=== PATIENT | female | born 1975 | race Caucasian/White ===

== ENCOUNTER → 2018-06-21 15:28 | Outpatient (CLI) | payer OTHER, SELFPAY ==
--- NOTE | 2018-06-21 16:18 | XR_ITS ---
XR foot LT min 3V HISTORY: Left foot pain ITS.REASON: pain ORDERING PHYSICIAN: Stephany Varela PATIENT AGE: 43 years COMPARISON: None FINDINGS: There is metatarsus varus with mild hallux valgus. No fracture or dislocation. No lytic or blastic change or significant degenerative change. IMPRESSION: Hallux valgus with metatarsus varus
--- NOTE | 2018-06-21 16:18 | XR_ITS ---
XR foot RT min 3V HISTORY: Foot pain ITS.REASON: pain ORDERING PHYSICIAN: Stephany Varela PATIENT AGE: 43 years COMPARISON: None FINDINGS: Mild metatarsus varus with mild hallux valgus. No fracture or dislocation. No lytic or blastic change. No significant degenerative change. IMPRESSION: Mild metatarsus varus with mild hallux valgus
--- NOTE | 2018-06-21 16:18 | XR_ITS ---
XR shoulder RT min 2V HISTORY: Right shoulder pain ITS.REASON: pain ORDERING PHYSICIAN: Stephany Varela PATIENT AGE: 43 years Comparison: 02/09/2007 FINDINGS: There are mild osteoarthritic changes of the acromioclavicular joint. The glenohumeral joint is unremarkable. No significant subacromial stenosis. No fracture or dislocation. IMPRESSION: Mild osteoarthritis of the acromioclavicular joint which has developed since the previous exam otherwise negative
[2018-06-21 16:19] LABS: Basophils % 0.4 % (0.1-2.0); Eosinophils # 0.1 K/mm3 (0.0-0.4); Eosinophils % 1.7 % (0.1-12.0); Hematocrit 37.3 % (37.0-47.0); Hemoglobin 12.9 g/dL (12.2-16.2); Lymphocytes # 2.9 K/mm3 (0.7-4.5); Lymphocytes % 34.1 % (10-50); Mean Corpuscular HGB Conc 34.5 g/dL (31.8-35.4); Mean Corpuscular Hemoglobin 29.1 pg (27.0-31.2); Mean Corpuscular Volume 84.3 fl (81-99); Mean Platelet Volume 7.9 fl (7.4-10.4); Monocytes # 0.4 K/mm3 (0.1-1.0); Monocytes % 4.9 % (1.7-9.3); Platelet Count 203 K/mm3 (142-424); Red Blood Count 4.42 M/mm3 (4.20-5.40); Red Cell Distribution Width 14.2 % (11.5-17.5); White Blood Count 8.4 K/mm3 (4.8-10.8)
[2018-06-21 17:51] LABS: Erythrocyte Sedimentation Rate 22 mm/hr (0-20)
[2018-06-21 17:53] LABS: Alanine Aminotransferase 23 U/L (12-78); Albumin Level 3.6 gm/dL (3.4-5.0); Albumin/Globulin Ratio 1.1 (1.1-1.8); Alkaline Phosphatase 124 U/L (46-116); Anion Gap 13.5 mEq/L (5-15); Aspartate Amino Transferase 16 U/L (15-37); Bilirubin,Total 0.4 mg/dL (0.2-1.0); Blood Urea Nitrogen 13 mg/dL (7-18); C-Reactive Protein 0.7 mg/L (0.0-0.9); Calcium 8.8 mg/dL (8.5-10.1); Carbon Dioxide 25 mmol/L (21.0-32.0); Chloride 102 mmol/L (98-107); Chol/HDL Ratio 3.1 (1-3.5); Cholesterol 152 mg/dL (140-200); Creatinine,Serum 0.81 mg/dL (0.55-1.02); Estimated Glomerular Filt Rate 77 ml/min (>60); Free T4 (Free Thyroxine) 1.15 ng/dl (0.76-1.46); GFR (African American) 93 ML/MIN (>60); Globulin 3.4 gm/dl (1.3-3.2); Glucose 84 mg/dL (74-106); HDL Cholesterol 49 mg/dL (29-89); LDL Cholesterol 66 mg/dL (0-130); Potassium 3.5 mmoL/L (3.5-5.1); Sodium 137 mmol/L (136-145); Thyroid Stimulating Hormone 1.82 uIU/ml (0.358-3.740); Triglycerides 185 mg/dL (30-200); VLDL Cholesterol 37 mg/dL (0-40)
[2018-06-23 13:10] LABS: Anti-Centromere B Antibodies <0.2 AI (0.0-0.9); Anti-Jo-1 <0.2 AI (0.0-0.9); Anti-Smith Antibody <0.2 AI (0.0-0.9); Antichromatin Antibodies <0.2 AI (0.0-0.9); Antiscleroderma-70 Antibodies <0.2 AI (0.0-0.9); RNP Antibodies <0.2 AI (0.0-0.9); Sjogren's Anti-SS-A <0.2 AI (0.0-0.9); Sjogren's Anti-SS-B <0.2 AI (0.0-0.9)
[2018-06-23 13:26] LABS: Anti-DNA (DS) Ab Qn 1 IU/mL (0-9); RA Latex Turbid. 11.8 IU/mL (0.0-13.9); Vitamin D 25 Hydroxy 13.4 ng/mL (30.0-100.0)
[2018-06-24 11:21] LABS: PTT-LA 38.7 sec (0.0-51.9); dRVVT 39.2 sec (0.0-47.0)
[2018-06-24 12:39] LABS: Lupus Reflex Interpretation Comment: (.)
[2018-06-25 08:07] LABS: Anti-Cyclic Citrullinated Pept 4 units (0-19)
== END ==
PROVIDERS: Visit Provider Nurse Practitioner Family
DX: I10 Essential (primary) hypertension (principal); R53.83 Other fatigue; M25.511 Pain in right shoulder; M25.50 Pain in unspecified joint; M79.671 Pain in right foot; M79.672 Pain in left foot
CPT/HCPCS: 36415; 73030; 73630; 80053; 80061; 82652; 84439; 84443; 85025; 85613; 85651; 86140; 86200; 86225; 86235; 86431

== ENCOUNTER → 2018-07-04 13:45 | Outpatient (CLI) | payer OTHER, SELFPAY ==
--- NOTE | 2018-07-04 13:57 | XR_ITS ---
XR wrist LT min 3V HISTORY ITS.REASON: left wrist pain ORDERING PHYSICIAN: Nicci Escamilla MD PATIENT AGE: 43 years Comparison: None FINDINGS: No fracture or dislocation. No lytic or blastic change. There is normal mineralization.. The joint spaces are well-preserved. No significant degenerative/arthritic changes. No erosive changes evident.. IMPRESSION: Negative wrist
== END ==
PROVIDERS: PCP Nurse Practitioner Family; Visit Provider Orthopaedic Surgery
DX: M25.532 Pain in left wrist (principal)
CPT/HCPCS: 73110

== ENCOUNTER → 2018-07-14 11:24 | Outpatient (CLI) | payer OTHER, SELFPAY ==
--- NOTE | 2018-07-14 11:32 | XR_ITS ---
XR foot wt bearing LT 3V HISTORY: Foot pain ITS.REASON: pain ORDERING PHYSICIAN: Iliana Schaefer DPM PATIENT AGE: 43 years COMPARISON: None FINDINGS: There is moderate metatarsus varus with mild hallux valgus. No fracture or dislocation. No other significant anomalies. IMPRESSION: Metatarsus varus with hallux valgus
--- NOTE | 2018-07-14 11:32 | XR_ITS ---
XR foot wt bearing RT 3V HISTORY: Foot pain ITS.REASON: pain ORDERING PHYSICIAN: Iliana Schaefer DPM PATIENT AGE: 43 years COMPARISON: None FINDINGS: There is metatarsus varus with mild hallux valgus. No fracture or dislocation. No lytic or blastic change. Normal alignment. IMPRESSION: Metatarsus varus with mild hallux valgus
== END ==
PROVIDERS: PCP Emergency Medicine; Visit Provider Podiatrist
DX: M79.671 Pain in right foot (principal); M79.672 Pain in left foot
CPT/HCPCS: 73630

== ENCOUNTER → 2018-07-21 12:49 | Outpatient (CLI) | payer OTHER, SELFPAY ==
--- NOTE | 2018-07-21 12:53 | XR_ITS ---
. DEXA DEXA SCAN.-BONE DENSITY STUDY HIPS AND LUMBAR SPINE HISTORY: Postmenopausal female 42-year-old female smoker. Low calcium intake. Reports history of bone disease postmenopausal TECHNIQUE: DEXA scan hip and lumbar spine The most complete data summary and color graphic presentation of the today's ( and any prior ) DEXA findings are available in PACS. Definition and treatment guidelines included. COMPARISON: None listed LUMBAR SPINE: Overall osteopenia L1 vertebral body demonstrates the lowest T score -1.8 with BMD0.918 g/cm sq Overall mean lumbar L1-L4 T score -1.6 with BMD0.993 g/cm sq .. HIPS: Femoral neck density is best predictor of hip fracture risk . Right femoral neck demonstrates the lowest T score -1.9 with BMD0.777 g/cm sq . Left normal neck T score -1.7 with BMD 0.795 Averaging all region yields today's Hip Mean T score -0.9 with BMD0.893 g/cm sq ... IMPRESSION 1. LUMBAR SPINE: Overall lumbar T score -1.6 = osteopenia. Lowest individual vertebra T-score at L1 = 1.8 2. HIPS: Overall hip T score -0.9 reflecting low normal bone density However Both femoral necks demonstrate osteopenia. Right femoral neck T score = -1.9 & Left = -1.7 WHO criteria for post-menopausal, Women: Normal: T-score at or above -1 SD Osteopenia: T-score between -1 and -2.5 SD Osteoporosis: T-score at or below -2.5 SD
== END ==
PROVIDERS: PCP Emergency Medicine; Visit Provider Podiatrist
DX: M85.80 Other specified disorders of bone density and structure, unspecified site (principal)
CPT/HCPCS: 77080

== ENCOUNTER → 2018-08-01 07:42 | Outpatient (CLI) | payer OTHER, SELFPAY ==
--- NOTE | 2018-08-01 07:43 | MM_ITS ---
MM Dig screening mamm BI w/CAD CAD Screening COMPARISON: None, the patient has had previous mammogram but does not know where they were performed INDICATION: There is a history of breast cancer patient maternal aunt diagnosed after menopause. TECHNIQUE: Standard CC and MLO images were obtained. R2 CAD reviewed. FINDINGS: Scattered fibroglandular densities are seen throughout both breasts and the findings are bilateral and symmetrical. There is a mole marker left breast. There is no suspicious lesion and there are no suspicious microcalcifications. IMPRESSION: Fibrofatty parenchyma with no suspicious lesion seen BI-RADS Category: 1 Negative RECOMMENDED FOLLOW-UP: 1YR - 1 YEAR FOLLOW-UP (A letter has been sent to the patient regarding results of the study.)
== END ==
PROVIDERS: PCP Nurse Practitioner Family; Visit Provider Obstetrics & Gynecology
DX: Z12.31 Encounter for screening mammogram for malignant neoplasm of breast (principal)
CPT/HCPCS: 77067

== ENCOUNTER → 2018-08-11 07:50 | Outpatient (POV) | payer OTHER, SELFPAY | PROVIDERS: Visit Provider Specialist | DX: R20.2 Paresthesia of skin (principal); M79.602 Pain in left arm | CPT/HCPCS: 95886; 95908 ==

== ENCOUNTER 2018-08-11 14:30 | Outpatient (RCR) | payer OTHER, SELFPAY ==
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
== END 2018-08-11 14:35 | disposition home or self-care (01) ==
LOC: OT 14:30
PROVIDERS: Visit Provider Nurse Practitioner Family
DX: M25.511 Pain in right shoulder (principal)
CPT/HCPCS: 97014; 97110; 97165; G0283

== ENCOUNTER → 2018-09-08 13:24 | Outpatient (CLI) | payer MEDICARE, OTHER, SELFPAY ==
[2018-09-08 14:15] LABS: Basophils % 0.3 % (0.1-2.0); Eosinophils # 0.1 K/mm3 (0.0-0.4); Eosinophils % 1.1 % (0.1-12.0); Hematocrit 41.2 % (37.0-47.0); Hemoglobin 14.4 g/dL (12.2-16.2); Lymphocytes # 2.9 K/mm3 (0.7-4.5); Lymphocytes % 29.6 % (10-50); Mean Corpuscular Volume 82.7 fl (81-99); Mean Platelet Volume 7.8 fl (7.4-10.4); Monocytes # 0.7 K/mm3 (0.1-1.0); Monocytes % 6.7 % (1.7-9.3); Neutrophils # 6.2 K/mm3 (1.8-7.8); Neutrophils % 62.3 % (37.0-80.0); Platelet Count 249 K/mm3 (142-424); Red Blood Count 4.98 M/mm3 (4.20-5.40); Red Cell Distribution Width 14.1 % (11.5-17.5); White Blood Count 9.9 K/mm3 (4.8-10.8)
[2018-09-08 15:49] LABS: Alanine Aminotransferase 25 U/L (12-78); Alkaline Phosphatase 108 U/L (46-116); Anion Gap 18.4 mEq/L (5-15); Aspartate Amino Transferase 22 U/L (15-37); Bilirubin,Total 0.5 mg/dL (0.2-1.0); Blood Urea Nitrogen 12 mg/dL (7-18); Carbon Dioxide 22 mmol/L (21.0-32.0); Chloride 101 mmol/L (98-107); Creatinine,Serum 0.89 mg/dL (0.55-1.02); Estimated Glomerular Filt Rate 69 ml/min (>60); GFR (African American) 84 ML/MIN (>60); Globulin 3.9 gm/dl (1.3-3.2); Glucose 73 mg/dL (74-106); Potassium 4.4 mmoL/L (3.5-5.1); Sodium 137 mmol/L (136-145); Total Protein,Serum 7.9 gm/dL (6.4-8.2)
== END ==
PROVIDERS: Visit Provider Orthopaedic Surgery
DX: K05.219 Aggressive periodontitis, localized, unspecified severity (principal); Z01.818 Encounter for other preprocedural examination
CPT/HCPCS: 36415; 80053; 85025

== ENCOUNTER → 2018-09-26 09:33 | Outpatient (CLI) | payer MEDICARE, OTHER, SELFPAY ==
--- NOTE | 2018-09-26 09:42 | XR_ITS ---
XR hip BI w PEL1V HISTORY: Pelvic and hip pain ITS.REASON: pain ORDERING PHYSICIAN: Stephany Varela APRN PATIENT AGE: 43 years COMPARISON: None FINDINGS: No fracture or dislocation is evident. No significant degenerative change. No lytic or blastic change. Unremarkable soft tissues. There is normal range of motion of both hips on the frog-leg views. IMPRESSION: Negative pelvis and bilateral hips
--- NOTE | 2018-09-26 09:42 | XR_ITS ---
XR knee RT 3V HISTORY: ITS.REASON: pain ORDERING PHYSICIAN: Stephany Varela APRN PATIENT AGE: 43 years COMPARISON: None FINDINGS: No fracture or dislocation. No lytic or blastic change. Normal mineralization. No significant arthritic changes evident. No other significant findings IMPRESSION: Negative Knee
--- NOTE | 2018-09-26 09:42 | XR_ITS ---
EXAM: XR cervical spine 5V HISTORY: ITS.REASON: pain ORDERING PHYSICIAN: Stephany Varela APRN PATIENT AGE: 43 years COMPARISON: None FINDINGS: There is straightening of the normal curvature suggesting mild muscle spasm. No fracture or dislocation. No lytic or blastic change. No significant degenerative change. The disc spaces are preserved. Oblique films show normal neural foramina bilaterally. IMPRESSION: Possible mild muscle spasm otherwise negative cervical spine
--- NOTE | 2018-09-26 09:42 | XR_ITS ---
XR knee LT 3V HISTORY: ITS.REASON: pain ORDERING PHYSICIAN: Stephany Varela APRN PATIENT AGE: 43 years COMPARISON: None FINDINGS: No fracture or dislocation. No lytic or blastic change. Normal mineralization. No significant arthritic changes evident. No other significant findings IMPRESSION: Negative Knee
== END ==
PROVIDERS: PCP Emergency Medicine; Visit Provider Nurse Practitioner Family
DX: M25.561 Pain in right knee (principal); M25.562 Pain in left knee; M25.551 Pain in right hip
CPT/HCPCS: 72050; 73521; 73562

== ENCOUNTER → 2018-12-08 12:46 | Outpatient (POV) | payer MEDICARE, OTHER, SELFPAY | PROVIDERS: Visit Provider Specialist | DX: M79.671 Pain in right foot (principal); M79.672 Pain in left foot; G57.53 Tarsal tunnel syndrome, bilateral lower limbs | CPT/HCPCS: 95886; 95911 ==

== ENCOUNTER → 2018-12-30 13:53 | Outpatient (CLI) | payer MEDICARE, OTHER, SELFPAY ==
--- NOTE | 2018-12-30 13:58 | XR_ITS ---
PROCEDURE: XR ANKLE WT BEARING RT MIN 3V CLINICAL INDICATION: pain Foot and ankle pain COMPARISON: No exams were available for comparison FINDINGS: No fracture, dislocation, lytic change, or blastic change evident. No significant degenerative change IMPRESSION: No acute findings. Dictated by: Rashard Salas MD 12/30/2018 15:14 Electronically signed by Rashard Salas MD in [facility] 12/30/2018 15:15
--- NOTE | 2018-12-30 13:58 | XR_ITS ---
PROCEDURE: XR FOOT WT BEARING LT 3V CLINICAL INDICATION: pain COMPARISON: [id number] XR foot RT min 3V from 06/21/2018 [id number] XR foot LT min 3V from 06/21/2018 [id number] XR foot wt bearing LT 3V from 07/14/2018 [id number] XR foot wt bearing RT 3V from 07/14/2018 FINDINGS: No fracture or dislocation. No lytic or blastic change. There is normal mineralization. No change in the metatarsus varus with mild hallux valgus and mild bunion formation of the distal aspect of the 1st metatarsal. First intermetatarsal space is widened Other findings:None. IMPRESSION: No significant change. No acute finding. Metatarsus varus with hallux valgus Dictated by: Rashard Salas MD 12/30/2018 15:12 Electronically signed by Rashard Salas MD in [facility] 12/30/2018 15:12
--- NOTE | 2018-12-30 13:58 | XR_ITS ---
PROCEDURE: XR ANKLE WT BEARING LT MIN 3V CLINICAL INDICATION: pain COMPARISON: XR FOOT WT BEARING LT 3V from 12/30/2018 FINDINGS: No fracture, dislocation, lytic change, or blastic change evident. No significant degenerative change IMPRESSION: No acute findings. Dictated by: Rashard Salas MD 12/30/2018 15:10 Electronically signed by Rashard Salas MD in [facility] 12/30/2018 15:10
--- NOTE | 2018-12-30 13:58 | XR_ITS ---
PROCEDURE: XR FOOT WT BEARING RT 3V CLINICAL INDICATION: pain COMPARISON: [id number] XR foot RT min 3V from 06/21/2018 [id number] XR foot LT min 3V from 06/21/2018 [id number] XR foot wt bearing LT 3V from 07/14/2018 [id number] XR foot wt bearing RT 3V from 07/14/2018 XR ANKLE WT BEARING RT MIN 3V from 12/30/2018 FINDINGS: No fracture or dislocation. No lytic or blastic change. There is normal mineralization. No change in the metatarsus varus with mild hallux valgus and mild bunion formation of the distal aspect of the 1st metatarsal. First intermetatarsal space is widened. These findings are more prominent on the left side as compared to the right side. Other findings:None. IMPRESSION: No significant change. No acute finding. Mild metatarsus varus with mild hallux valgus Dictated by: Rashard Salas MD 12/30/2018 15:13 Electronically signed by Rashard Salas MD in [facility] 12/30/2018 15:13
== END ==
PROVIDERS: PCP Emergency Medicine; Visit Provider Podiatrist
DX: M20.11 Hallux valgus (acquired), right foot (principal); M20.12 Hallux valgus (acquired), left foot; M25.571 Pain in right ankle and joints of right foot; M25.572 Pain in left ankle and joints of left foot; M79.671 Pain in right foot; M79.672 Pain in left foot
CPT/HCPCS: 73610; 73630

== ENCOUNTER 2020-06-15 19:04 | Emergency (ER) | payer MEDICARE, MEDICAID, SELFPAY ==
--- NOTE | 2020-06-15 19:19 | CT_ITS ---
PROCEDURE: CT HEAD/BRAIN WO CON CLINICAL INDICATION: headache Severe headache COMPARISON: No exams were available for comparison TECHNIQUE: Axial images obtained. All CT scans at the facility use one or more dose reduction, viz: automated exposure control, ma/kV adjustment per patient size (including targeted exams where dose is matched to indication, i.e. head), or iterative reconstruction technique. FINDINGS: No midline shift, mass effect, intracranial hemorrhage, hydrocephalus, or extra-axial fluid collection is evident. There is generalized atrophy with hypoattenuation of the periventricular white matter which may represent microangiopathic changes. The calvarium has an unremarkable appearance. No mastoid effusion. No sinus air-fluid level. IMPRESSION: No acute intracranial finding There is generalized atrophy with hypoattenuation of the periventricular white matter which is nonspecific and may represent chronic microvascular changes. Nonemergent MRI may provide further evaluation for white matter abnormalities if clinically warranted. Dictated by: Rashard Salas MD 06/16/2020 05:41 Rashard Salas MD in [facility] 06/16/2020 05:41
--- NOTE | 2020-06-15 19:21 | HMH.EDHA ---
ED Disposition Condition on Discharge: Good - Critical Care Critical Care Time: No <Fernando Adams - Last Filed: 06/15/20 19:58> <Willie Johnson - Last Filed: 06/15/20 22:18> Clinical Impression: Hypertensive urgency Headache Qualifiers: Headache type: unspecified Headache chronicity pattern: acute headache Intractability: not intractable Qualified Code(s): R51.9 - Headache, unspecified Disposition: Home, Self-Care Instructions: DI for Headache Additional Instructions: see pcp in am for follow up Referrals: Brielle Nichols APRN [Primary Care Provider] - Attestation: On 06/15/20, the high probability of a clinically significant, sudden or life threatening deterioration of the following system(s) required my full and direct attention, intervention and personal management. The time I documented below is in addition to time spent performing reported procedures but includes the following listed in this critical care notation. Medical Decision Making - Medical Records Medical records reviewed: Yes: I reviewed the patient's medical records. - Kiko Inquiry Pt receiving controlled substance: No <Fernando Adams - Last Filed: 06/15/20 19:58> - Lab Data Lab results reviewed: Yes: I reviewed the patient's lab results. Result diagrams: 06/15/20 21:10 06/15/20 21:10 - CT Data CT Scan: Head Time Received: 21:[address] Reviewed: Yes: I have viewed the radiologist's interpretation Preliminary Findings: Normal/NAD - Reevaluation(s) Time: 22:16 <Willie Johnson - Last Filed: 06/15/20 22:18> Vital Signs: 06/15/20 19:29 06/15/20 20:00 06/15/20 20:30 Temperature 97.8 F Temperature Source Oral Pulse Rate [Left Brachial] 84 73 83 Respiratory Rate 16 17 19 Blood Pressure [Right Arm] 205/124 H 200/110 H 195/95 H Blood Pressure Mean [Right Arm] 151 140 128 Blood Pressure Source [Right Arm] Automatic Cuff Manual Cuff/ Auscultation Automatic Cuff Blood Pressure Position [Right Arm] Sitting Supine Supine 02 Sat by Pulse Oximetry 96 100 99 Oxygen Delivery Method Room Air Room Air Room Air 06/15/20 21:33 Temperature Temperature Source Pulse Rate [Left Brachial] 78 Respiratory Rate 18 Blood Pressure [Right Arm] 188/80 H Blood Pressure Mean [Right Arm] 116 Blood Pressure Source [Right Arm] Manual Cuff/ Auscultation Blood Pressure Position [Right Arm] Supine 02 Sat by Pulse Oximetry 99 Oxygen Delivery Method Room Air - Lab Data Lab Results 06/15/20 21:10: WBC 10.2, RBC 4.88, Hgb 13.8, Hct 42.2, MCV 86.6, MCH 28.3, MCHC 32.7, RDW 15.2, Plt Count 202, MPV 8.2, Neut % (Auto) 64.6, Lymph % (Auto) 26.8, Stark % (Auto) 5.9, Eos % (Auto) 2.0, Baso % (Auto) 0.7, Neut # (Auto) 6.6, Lymph # (Auto) 2.8, Stark # (Auto) 0.6, Eos # (Auto) 0.2, Baso # (Auto) 0.1 06/15/20 21:10: Sodium 138, Potassium 3.6, Chloride 103, Carbon Dioxide 30, Anion Gap 8.6, BUN 15, Creatinine 1.00, Estimated Creat Clear 92, Estimated GFR 60, Est GFR ( Amer) 73, Glucose 107 H, Calcium 10.0, Total Bilirubin 0.7, AST 42 H, ALT 35, Alkaline Phosphatase 100, Total Protein 8.6 H, Albumin 4.7, Globulin 3.9 H, Albumin/Globulin Ratio 1.2 Orders (Tests/Meds): ED MEDICATIONS Discontinued Medications Generic Name Dose Route Start Last Admin Trade Name Gaelq PRN Reason Stop Dose Admin Clonidine HCl 0.1 mg 06/15/20 22:02 06/15/20 22:07 Clonidine 0.1mg Tablet PO 06/15/20 22:03 0.1 mg ONCE ONE Administration Diphenhydramine HCl 25 mg 06/15/20 20:57 06/15/20 20:58 Diphenhydramine 50mg/Ml Vial IV 06/15/20 20:58 25 mg ONCE ONE Administration Ketorolac Tromethamine 30 mg 06/15/20 19:19 06/15/20 19:51 Ketorolac 30mg/Ml Vial IM 06/15/20 19:20 30 mg ONCE ONE Administration Morphine Sulfate 4 mg 06/15/20 22:14 Morphine 4mg/Ml Syringe IV 06/15/20 22:15 ONCE ONE Ondansetron HCl 4 mg 06/15/20 22:14 Ondansetron 4mg/2ml Vial IV 06/15/20 22:15 ONCE ONE Prochlorperazine Edisylate 10 mg
[2020-06-15 19:29] VITALS: BP 205/124; PULSE 84; RESP 16; TEMP 36.6; O2SAT 96; BMI 38.9
--- NOTE | 2020-06-15 19:53 | PC.NURSE ---
discussed care with . waiting on report.
[2020-06-15 20:00] VITALS: BP 200/110; PULSE 73; RESP 17; O2SAT 100
[2020-06-15 20:30] VITALS: BP 195/95; PULSE 83; RESP 19; O2SAT 99
[2020-06-15 21:25] LABS: Chloride 103 mmol/L (98-107)
[2020-06-15 21:26] LABS: Potassium 3.6 mmoL/L (3.5-5.1); Sodium 138 mmol/L (136-145)
[2020-06-15 21:28] LABS: Alanine Aminotransferase 35 U/L (12-78); Albumin Level 4.7 g/dl (3.5-5.0); Alkaline Phosphatase 100 U/L (38-126); Aspartate Amino Transferase 42 U/L (14-36); Bilirubin,Total 0.7 mg/dl (0.2-1.3); Blood Urea Nitrogen 15 mg/dl (7-17); Creatinine Clearance Estimated 92 mL/min (50-200); Estimated Glomerular Filt Rate 60 ml/min (>60); GFR (African American) 73 ML/MIN (>60)
[2020-06-15 21:29] LABS: Albumin/Globulin Ratio 1.2 (1.1-1.8); Anion Gap 8.6 mEq/L (5-15); Carbon Dioxide 30 mmol/L (22.0-30.0); Globulin 3.9 g/dL (1.3-3.2); Glucose 107 mg/dl (74-100); Total Protein,Serum 8.6 g/dl (6.3-8.2)
[2020-06-15 21:32] LABS: Basophils # 0.1 K/mm3 (0-0.2); Basophils % 0.7 % (0.1-2.0); Eosinophils # 0.2 K/mm3 (0.0-0.4); Hematocrit 42.2 % (37.0-47.0); Hemoglobin 13.8 g/dL (12.2-16.2); Lymphocytes # 2.8 K/mm3 (0.7-4.5); Lymphocytes % 26.8 % (10-50); Mean Corpuscular HGB Conc 32.7 g/dL (31.8-35.4); Mean Corpuscular Hemoglobin 28.3 pg (27.0-31.2); Mean Corpuscular Volume 86.6 fl (81-99); Mean Platelet Volume 8.2 fl (7.4-10.4); Monocytes # 0.6 K/mm3 (0.1-1.0); Monocytes % 5.9 % (1.7-9.3); Neutrophils # 6.6 K/mm3 (1.8-7.8); Neutrophils % 64.6 % (37.0-80.0); Platelet Count 202 K/mm3 (142-424); Red Blood Count 4.88 M/mm3 (4.20-5.40); Red Cell Distribution Width 15.2 % (11.5-17.5); White Blood Count 10.2 K/mm3 (4.8-10.8)
[2020-06-15 21:33] VITALS: BP 188/80; PULSE 78; RESP 18; O2SAT 99
[2020-06-15 22:20] VITALS: BP 178/76; PULSE 85; RESP 16; TEMP 36.6
== END 2020-06-15 22:49 | disposition home or self-care (01) ==
PROVIDERS: Emergency Medicine; Emergency Provider Family Medicine; PCP Nurse Practitioner Family
DX: I16.0 Hypertensive urgency (principal); J44.9 Chronic obstructive pulmonary disease, unspecified; F33.1 Major depressive disorder, recurrent, moderate; F17.210 Nicotine dependence, cigarettes, uncomplicated
CPT/HCPCS: 70450; 80053; 85025; 96375; 99283; J2405

== ENCOUNTER 2020-08-15 11:05 | Emergency (ER) | payer MEDICARE, MEDICAID, SELFPAY ==
[2020-08-15 11:06] VITALS: BP 171/82; PULSE 62; RESP 16; TEMP 37.1; O2SAT 98; BMI 38.9
--- NOTE | 2020-08-15 11:07 | XR_ITS ---
PROCEDURE: XR KNEE RT 3V CLINICAL INDICATION: pain COMPARISON: No exams were available for comparison FINDINGS: There are mild osteoarthritic changes involving all 3 compartments slightly greatest at the medial compartment. No fracture or dislocation. No lytic or blastic change. IMPRESSION: Mild osteoarthritic change Dictated by: Rashard Salas MD 08/15/2020 11:50 Rashard Salas MD in [facility] 08/15/2020 11:50
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
[2020-08-15 11:31] VITALS: BP 194/89
[2020-08-15 12:31] VITALS: BP 180/90
[2020-08-15 12:50] VITALS: BP 190/80; PULSE 84; RESP 20; TEMP 37.1; O2SAT 99
== END 2020-08-15 12:51 | disposition home or self-care (01) ==
PROVIDERS: Emergency Provider Student in an Organized Health Care Education/Training Program; PCP Nurse Practitioner Family
DX: M25.561 Pain in right knee (principal); M17.11 Unilateral primary osteoarthritis, right knee; J44.9 Chronic obstructive pulmonary disease, unspecified; I10 Essential (primary) hypertension; F33.1 Major depressive disorder, recurrent, moderate; F17.210 Nicotine dependence, cigarettes, uncomplicated; Z79.899 Other long term (current) drug therapy
CPT/HCPCS: 73562; 96372; 99282